=== PATIENT | female | born 1970 | race African-American/Black ===

== ENCOUNTER → 2021-04-04 00:16 | Outpatient (CLI) | payer MEDICAID, SELFPAY ==
[2021-04-04 16:43] LABS: SARS-CoV-2 RNA PCR Negative
== END ==
PROVIDERS: Visit Provider Obstetrics & Gynecology
DX: Z01.812 Encounter for preprocedural laboratory examination (principal); Z20.822 Contact with and (suspected) exposure to COVID-19
CPT/HCPCS: C9803; U0003; U0005

== ENCOUNTER 2021-04-07 01:06 | Day surgery (SDC) | payer MEDICAID, SELFPAY ==
[2021-03-31 17:14] VITALS: BMI 19.6
--- NOTE | 2021-04-07 08:35 | PM.IMHP ---
H&P: HPI History of Present Illness Date/Time: 04/07/21 08:35 Chief Complaint: fibroid. Narrative: Lashanda is here for [facility] myomectomy. Seen in February for amenorrhea and abdominal bloating. She had normal labs for amenorrhea. US showed 5cm central/anterior submucosal or intramural fibroid. She took provera and did get a period. Then she got one on her own since. She has gained 7# back and is pleased with that. [facility] Social History Social History Smoking status: Never smoker Living arrangements: with family Spiritual care concerns: No Meds Home Medications and Allergies Home Medications Medication Instructions Recorded Confirmed Type No Home Medications 03/31/21 03/31/21 History Allergies Allergy/AdvReac Type Severity Reaction Status Date / Time No Known Allergies Allergy Verified 03/31/21 16:59 Assessment and Plan Additional Plan Will proceed with [facility] myomectomy with myosure. Previously consented, questions answered.
[2021-04-07 10:40] VITALS: BP 112/78; PULSE 76; RESP 16; TEMP 36.2; O2SAT 100
[2021-04-07] MEDS: LACTATED RINGERS 1,000 ML 30 ML IV CONT ×2 (10:45→13:36)
[2021-04-07] MEDS: ACETAMINOPHEN 500 MG TABLET 1000 MG PO (10:45)
--- NOTE | 2021-04-07 10:55 | P.PNAN_ITS ---
Anes - Initial Pre Proc Eval Procedure: Operation Date: 04/07/21 12:00 Proposed Procedures p Hysteroscopy Dilation and Curettage - Susi Hilario MD Date/Time: 04/07/21 10:55 Surgeon: Susi Hilario MD Pre Op Diagnosis: uterine leiomyoma Patient Data Age: 50 Gender: F Height: 1.55 m Weight: 45.5 kg Allergies Allergy/AdvReac Type Severity Reaction Status Date / Time No Known Allergies Allergy Verified 03/31/21 16:59 Home Medications Medication Instructions Recorded Confirmed Type No Home Medications 03/31/21 04/07/21 History Patient hx anesthesia problems: none Family hx anesthesia problems: none [facility] Past Medical History Medical History (Updated 04/07/21 @ 10:50 by Prince Vidal MD) Healthy adult Social History Social History Smoking status: Never smoker Living arrangements: with family Spiritual care concerns: No Anes - Eval Final PreProcedure Day of Procedure 04/07/21 10:55 Patient weight: normal Heart: regular rate and rhythm Lungs: clear to auscultation Airway: Mallampati scale class II Neurological: alert and oriented Last oral intake: >/= 8 hours ASA classification: I Emergent: no Anesthetic plan: proceed Anesthesia type and monitoring: general GIVS and standard monitoring Informed Consent: The patient's anesthetic plan and its attendant risks and benefits were discussed with the patient/family/POA. Questions were solicited and answers provided to the satisfaction of the patient/family/POA.
--- NOTE | 2021-04-07 13:34 | W.PM.PROC2 ---
Procedure Note - Detailed Date of Procedure 04/07/21 Pre-op Diagnosis uterine leiomyoma Post-op Diagnosis same Procedure Performed Hysteroscopy and Myosure myomectomy Surgeon Susi Hilario MD Senior Data Warehouse Architect none Anesthesia MAC Description of Procedure The patient was taken to the OR and placed in dorthal lithotomy in [facility]. She received MAC anesthesia. A speculum was placed and the cervix grasped with a single tooth tenaculum. 10cc of 0.25% marcaine with epinephrine was instilled in a paracervical block. The cervix was sequentially dilated to accomodate a Myosure XL hysteroscope. The hysteroscope was inserted and the uterine cavity was visualized noting an anterior right fibroid and a small posterior polyp. The Myosure device was inserted and used to carefully resect the polyp and fibroid. The fibroid did dive deep into the myometrium and the entire fibroid was not able to be resected. When the angle was such that no further fibroid was able to be resected and visibility was more challenging, the procedure was terminated. The tenaculum was removed and the cervix was made hemostatic with Monsel's solution and pressure. Minimal bleeding was noted from the cervical os after 5 minutes. The speculum was removed. The patient tolerated the procedure well. Fluid deficit was 1100cc. Estimated Blood Loss 50 Drains No Packing No Pathology yes Complications No immediate complications Condition stable Disposition same day
[2021-04-07 13:36] VITALS: BP 104/53; PULSE 99; RESP 14; O2SAT 100
[2021-04-07 13:55] VITALS: BP 97/60; PULSE 82; RESP 16; O2SAT 100
[2021-04-07 14:25] VITALS: BP 117/79; PULSE 78; RESP 16
== END 2021-04-07 14:42 | disposition home or self-care (01) ==
PROVIDERS: Visit Provider Obstetrics & Gynecology
PROC: 0U5B8ZZ Destruction of Endometrium, Via Natural or Artificial Opening Endoscopic (ICD-10-PCS; CPT 58563; principal; 2021-04-07 12:00)
DX: D25.0 Submucous leiomyoma of uterus (principal); N84.0 Polyp of corpus uteri
CPT/HCPCS: 58561; 88305; A9270; J1100; J2250; J2405; J2704; J3010; J7030; J7120

== ENCOUNTER 2021-08-26 13:38 | Outpatient (CLI) | payer OTHER, SELFPAY ==
--- NOTE | ~2021-08-26 | MM_ITS ---
EXAMINATION: MM screening romel BI w julianne HISTORY: Screening mammogram TECHNIQUE: Craniocaudal and mediolateral oblique 3-D tomosynthesis images were obtained and synthetic 2-D images were generated. CAD analysis was submitted and interpreted. COMPARISON: No prior mammogram is available for comparison at this institution. BREAST PARENCHYMAL COMPOSITION: The breasts are extremely dense, which lowers the sensitivity of mamm ography. FINDINGS: There is no evidence of suspicious mass, calcification, or architectural distortion to sugg est malignancy in either breast. There has been no suspicious interval change. IMPRESSION: 1. No mammographic evidence of malignancy. 2. Recommend routine screening mammography in one year. BI-RADS Category 1: Negative Reviewed, dictated and finalized at location A. [employer]
== END 2021-08-26 13:39 | disposition home or self-care (01) ==
PROVIDERS: PCP Physician Assistant; Visit Provider Obstetrics & Gynecology
DX: Z12.31 Encounter for screening mammogram for malignant neoplasm of breast (principal)
CPT/HCPCS: 77063; 77067

== ENCOUNTER 2021-12-15 07:47 | Outpatient (CLI) | payer OTHER, SELFPAY ==
--- NOTE | ~2021-12-15 | NM_ITS ---
EXAM: NM gastric emptying study DATE: 12/15/2021 15:19 INDICATION: Abdominal distention (gaseous). TECHNIQUE: A gastric emptying study was performed using the methodology of Elaine RODGERS, et al. J Nucl Med 2007; 48:568-572. The patient was given a meal consisting of 2 scrambled eggs labeled with 0.962 mCi Tc-99m sulfur colloid, 2 slices of toast, two packages of jam, and approximately 120 mL of water . Simultaneous anterior and posterior 1-min images of the abdomen were obtained with the patient supi ne at multiple time points over a total period of 4 hours. The geometric mean of anterior and posteri or views was determined, and the percentage retention was calculated for each time point. COMPARISON: None. FINDINGS: Gastric retention of the radiotracer-labeled meal was 65%, 35%, and 9% at the 1-hour, 2-ho ur, and 4-hour time points, respectively. With this technique, apparent rapid gastric emptying is sug gested by <30% gastric retention at 1 hour. Delayed gastric emptying is defined by gastric retention of >90% at 1 hour, >60% retention at 2 hours, or >10% retention at 4 hours. IMPRESSION: 1. Normal gastric emptying. Reviewed, dictated and finalized at location A. IMPRESSION: 1. Normal gastric emptying.
[2021-12-15 09:06] LABS: CRP < 0.5 mg/dL (<1.0); Uric Acid 3.5 mg/dL (2.5-7.5)
[2021-12-15 10:10] LABS: Rheumatoid Factor < 8.6 IU/ML (<12)
[2021-12-15 10:53] LABS: Erythrocyte Sedimentation Rate 12 mm/hr (0-20)
== END 2021-12-15 07:48 | disposition home or self-care (01) ==
PROVIDERS: PCP Physician Assistant; Visit Provider Internal Medicine Gastroenterology
DX: R14.0 Abdominal distension (gaseous) (principal); M06.9 Rheumatoid arthritis, unspecified
CPT/HCPCS: 36415; 78264; 84550; 85652; 86038; 86140; 86430; A9541

== ENCOUNTER 2022-04-05 00:53 | Day surgery (SDC) | payer OTHER, SELFPAY ==
[2022-02-02 15:50] VITALS: BMI 17.3
--- NOTE | 2022-02-09 13:35 | PC.NURSE ---
Spoke with pt re rescheduling appointments. Pt rescheduled successfully. Pt to call back with info re Medicare ride. Reiterated to pt that she must have someone who will sign for her after the procedure.
[2022-03-17 14:36] VITALS: BMI 17.4
--- NOTE | 2022-04-05 09:22 | WPDANESEPPF ---
Anes - Initial Pre Proc Eval Procedure: Operation Date: 04/05/22 10:15 Proposed Procedures p Esophagogastroduodenoscopy & Screening Colonoscopy - Eyad Zhao MD Date/Time: 04/05/22 09:22 Surgeon: Eyad Zhao MD Pre Op Diagnosis: neoplasm screening, bloating Patient Data Age: 51 Gender: F Height: 1.57 m Weight: 43.2 kg Allergies Allergy/AdvReac Type Severity Reaction Status Date / Time gluten AdvReac Intermediate Rash Verified 04/05/22 09:55 Home Medications Medication Instructions Recorded Confirmed Type No Home Medications 03/31/21 04/05/22 History Patient hx anesthesia problems: none Family hx anesthesia problems: none Results Review: All pre-operative results and documents have been reviewed as part of the pre-operative evaluation. [facility] Past Medical History Medical History (Updated 04/05/22 @ 09:59 by Rodrigo Mancini MD) Colon cancer screening Fullness after eating Rash Social History Social History (Updated 10/29/21 @ 13:36 by Ericka Cameorn CMA) Smoking status: Never smoker Alcohol intake: never Substance use: never Substance use type: does not use Living arrangements: with family Spiritual care concerns: No Anes - Eval Final PreProcedure Day of Procedure 04/05/22 09:22 Patient weight: cachectic Heart: regular rate and rhythm Lungs: clear to auscultation Airway: Mallampati scale class II Neurological: alert and oriented Last oral intake: >/= 8 hours ASA classification: II Emergent: no Anesthetic plan: proceed Anesthesia type and monitoring: general GIVS and standard monitoring Results Review: All pre-operative results and documents have been reviewed as part of the pre-operative evaluation. Informed Consent: The patient's anesthetic plan and its attendant risks and benefits were discussed with the patient/family/POA. Questions were solicited and answers provided to the satisfaction of the patient/family/POA.
[2022-04-05 09:56] VITALS: BP 120/84; PULSE 64; RESP 16; TEMP 35.8; O2SAT 100; BMI 15.8
[2022-04-05] MEDS: LACTATED RINGERS 1,000 ML 150 ML IV CONT (10:17)
--- NOTE | 2022-04-05 10:57 | PM.HPGS ---
History of Present Illness History of Present Illness Consent: Risks, benefits, and alternatives have been discussed and questions answered. Patient agrees to proceed with procedure. Chief complaint: neoplasm screening, bloating Narrative: Lashanda Solorzano is a 51 year old female here with bloating (gastric emptying study was normal), never had scopes Review of Systems Constitutional: Constitutional: Denies headache(s) and Denies weakness Eyes: Eyes: Denies blurry vision ENT: Reports Normal hearing present, Denies headache(s) and Denies neck pain Cardiovascular: Cardiovascular: Denies chest pain and Denies dyspnea Respiratory: Respiratory: Denies dyspnea Gastrointestinal: Gastrointestinal: Reports no additional gastrointestinal complaints Genitourinary: Genitourinary: Denies dysuria Musculoskeletal: Musculoskeletal: Denies neck pain Integumentary/Breasts: Skin/Breast: Denies dry skin Neurologic: Reports Normal hearing present, Denies headache(s) and Denies weakness Psychiatric: Psychiatric: Denies anxiety Endocrine: Endocrine: Denies change in body appearance Hematologic/Lymphatic: Hematologic/Lymphatic: Denies easy bleeding Allergic/Immunologic: Allergic/Immunologic: Denies urticaria PMFSH Past Medical History Medical History (Updated 04/05/22 @ 10:58 by Eyad Zhao MD) Bloating Colon cancer screening Fullness after eating Rash Social History Social History (Updated 10/29/21 @ 13:36 by Ericka Cameron CMA) Smoking status: Never smoker Alcohol intake: never Substance use: never Substance use type: does not use Living arrangements: with family Spiritual care concerns: No Meds Home Medications and Allergies Home Medications Medication Instructions Recorded Confirmed Type No Home Medications 03/31/21 04/05/22 History Allergies Allergy/AdvReac Type Severity Reaction Status Date / Time gluten AdvReac Intermediate Rash Verified 04/05/22 09:55 Vital Signs Vital Signs - 24 hr 04/05/22 09:56 Temperature 96.5 F L Pulse Rate 64 Respiratory Rate 16 Blood Pressure 120/84 Pulse Oximetry 100 Oxygen Delivery Room Air Exam Const: General: comfortable and no acute distress HENMT: General nose exam: Normal nares present Eyes: General: appearance normal, both eyes and all related structures Neck: Neck: no JVD Resp: Auscultation: clear to auscultation bilaterally Cardio: Rate: regular rate Rhythm: regular rhythm GI: Inspection: non-distended GI Palp: Yes Soft to palpation Skin: General skin exam: normal color Neuro: General: gait normal Speech: normal speech Extrem: General: normal to inspection Psych: Mental Status: mental status grossly normal Assessment and Plan Assessment and plan (1) Colon cancer screening: Code(s): Z12.11 - Encounter for screening for malignant neoplasm of colon Status: Acute Assessment and Plan: colonoscopy for screening (2) Bloating: Code(s): R14.0 - Abdominal distension (gaseous) Status: Acute Assessment and Plan: egd with bx (3) Fullness after eating: Status: Acute Assessment and Plan: normal GES
--- NOTE | 2022-04-05 11:24 | SUR.OPER ---
EGD START 1107, END 1110. COLONOSCOPY START 1115, END 1124.
[2022-04-05 11:28] VITALS: BP 80/53; PULSE 67; RESP 23; O2SAT 100
[2022-04-05 11:38] VITALS: BP 84/55; PULSE 64; RESP 25; O2SAT 100
[2022-04-05 11:48] VITALS: BP 99/72; PULSE 77; RESP 22; O2SAT 100
== END 2022-04-05 12:35 | disposition home or self-care (01) ==
PROVIDERS: PCP Physician Assistant; Visit Provider Internal Medicine Gastroenterology
PROC: 0DJ08ZZ Inspection of Upper Intestinal Tract, Via Natural or Artificial Opening Endoscopic (ICD-10-PCS; CPT 43235; principal; 2022-04-05 10:15)
DX: Z12.11 Encounter for screening for malignant neoplasm of colon (principal); K64.8 Other hemorrhoids; R14.0 Abdominal distension (gaseous)
CPT/HCPCS: 45378; 43239; 88305; J2704; J7120

== ENCOUNTER 2023-04-13 07:38 | Emergency (ER) | payer OTHER, SELFPAY ==
[2023-04-13] VITALS (12 sets, daily range): BP systolic 104–128; BP diastolic 73–90; PULSE 68–70; RESP 14–20; TEMP 36.4; O2SAT 95–100
[2023-04-13] MEDS: KETOROLAC (*BKC) 60 MG/2 ML VIAL IM (08:19)
[2023-04-13 08:49] LABS: Anion Gap 3 mmol/L (8-16); Blood Urea Nitrogen 11 mg/dL (7-17); Calcium 9.5 mg/dL (8.4-10.2); Carbon Dioxide 29 mmol/L (22-30); Chloride 97 mmol/L (98-107); Estimated CRCL calculation 51 ml/min; Estimated Glomerular Filt Rate > 60; Glucose 78 mg/dL (65-110); Magnesium 1.9 mg/dL (1.6-2.3); Sodium 129 mmol/L (137-145)
--- NOTE | 2023-04-13 09:16 | ED.GENADULT ---
HPI - General Adult General Chief complaint: Extremity Problem,Nontraumatic Stated complaint: Numbness in right arm Time Seen by Provider: 04/13/23 07:41 History of Present Illness HPI narrative: Patient is a 52-year-old female who presents ER with numbness to the right arm. Intermittent over the last few weeks but increasing this morning. Has pain from the wrist into the forearm associate with the numbness. No trauma. Has history of carpal tunnel and this feels different. No alleviating factors. She reports she is concerned she may have vitamin deficiency or electrolyte imbalance due to being underweight. She has no pain in her neck or back. No trauma. No additional concerns. She has tried no medications to alleviate her discomfort. Related Data Allergies Allergy/AdvReac Type Severity Reaction Status Date / Time gluten AdvReac Intermediate Rash Verified 04/13/23 08:13 Review of Systems Constitutional: Constitutional: Denies chills, Denies fatigue and Denies fever(s) ENT: Denies nasal congestion and Denies sore throat Cardiovascular: Cardiovascular: Denies chest pain, Denies rapid heart rate and Denies radiating jaw, neck or arm pain Respiratory: Respiratory: Denies cough and Denies dyspnea PMFSH Past Medical History Medical History (Updated 04/13/23 @ 10:38 by Rad Yang MD) Bloating Colon cancer screening Fullness after eating Rash Social History Social History (Updated 10/29/21 @ 13:36 by Ericka Cameron CMA) Smoking status: Never smoker Alcohol intake: never Substance use: never Substance use type: does not use Living arrangements: with family Spiritual care concerns: No Exam Narrative: GENERAL: Well-appearing, well-nourished, and in no acute distress. HEAD: Normocephalic, atraumatic. ENT: Mucous membranes moist. Neck: No midline or paraspinal muscular tenderness of the C-spine. No trapezius tenderness. CHEST: Clear to auscultation. No respiratory distress. HEART: Regular rate and rhythm. Normal peripheral pulses. EXTREMITIES: Normal range of motion. No edema. Negative carpal tunnel compression test. SKIN: Warm, dry, no rash. NEURO: Alert and oriented x3. No focal sensory deficit right arm. PSYCH: Normal mood and affect. Course Course Emergency Course: Patient now reporting symptoms may be ongoing over the last year. Recommend patient follow-up with PCP. Will place on anti-inflammatories muscle relaxers. Vital Signs Vital signs: Vital Signs Temperature 97.5 F L 04/13/23 07:45 Pulse Rate 70 04/13/23 07:45 Respiratory Rate 14 04/13/23 07:45 Blood Pressure 112/73 04/13/23 07:45 Pulse Oximetry 100 04/13/23 07:45 Temperature 97.5 F L 04/13/23 07:45 Pulse Rate 70 04/13/23 07:45 Respiratory Rate 16 04/13/23 09:46 Blood Pressure 128/87 04/13/23 09:46 Pulse Oximetry 100 04/13/23 09:46 Medical Decision Making Vital Signs Vital Signs: Vital Signs Temperature 97.5 F L 04/13/23 07:45 Pulse Rate 70 04/13/23 07:45 Respiratory Rate 14 04/13/23 07:45 Blood Pressure 112/73 04/13/23 07:45 Pulse Oximetry 100 04/13/23 07:45 Temperature 97.5 F L 04/13/23 07:45 Pulse Rate 70 04/13/23 07:45 Respiratory Rate 16 04/13/23 09:46 Blood Pressure 128/87 04/13/23 09:46 Pulse Oximetry 100 04/13/23 09:46 Lab Data 04/13/23 08:23 Labs: Lab Results 04/13/23 Range/Units 08:23 Sodium 129 L (137-145) mmol/L Potassium 4.0 (3.4-5.0) mmol/L Chloride 97 L (98-107) mmol/L Carbon Dioxide 29 (22-30) mmol/L Anion Gap 3 L (8-16) mmol/L BUN 11 (7-17) mg/dL Creatinine 0.80 (0.7-1.0) mg/dL Estim Creat Clear Calc 51 ml/min Estimated GFR > 60 (59 - ) Glucose 78 (65-110) mg/dL Calcium 9.5 (8.4-10.2) mg/dL Magnesium 1.9 (1.6-2.3) mg/dL Discharge Plan Discharge Clinical Impression: Arm paresthesia, right Patient Disposition: Home, Self-
== END 2023-04-13 10:52 | disposition home or self-care (01) ==
PROVIDERS: Emergency Provider Emergency Medicine; PCP Physician Assistant
DX: R20.2 Paresthesia of skin (principal)
CPT/HCPCS: 36415; 80048; 83735; 96372; 99283; J1885